=== PATIENT | female | born 1990 | race African-American/Black ===

== ENCOUNTER 2018-05-11 23:47 | Emergency (ER) | payer MEDICAID, OTHER ==
[~2018-05-11] VITALS: Ht 157.5 cm; Wt 57.0 kg
[~2018-05-11 23:47] MED LIST: IBUP-779 PO; IRON18TA PO; MULT-1116 PO
[2018-05-12] MEDS ORDERED: IBUPROFEN 600MG TABLET PO ONE (06:30)
[2018-05-12 08:08] VITALS: BP 120/93
== END 2018-05-12 08:08 | disposition home or self-care (01) ==
LOC: ER 23:47
DX: S40.011A Contusion of right shoulder, initial encounter (principal); S20.221A Contusion of right back wall of thorax, initial encounter; Z98.1 Arthrodesis status; W22.8XXA Striking against or struck by other objects, initial encounter; Y93.89 Activity, other specified; Y92.89 Other specified places as the place of occurrence of the external cause; Y99.8 Other external cause status
CPT/HCPCS: 73030; 81025; 99283